=== PATIENT | female | born 2000 | race Caucasian/White ===

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

== ENCOUNTER 2020-06-29 14:00 | Inpatient (IN) | payer BC ==
[2020-07-07] MEDS: ELECTROLYTE-148 SOLN 1,000 ML IV SCH (13:00)
[2020-07-07 13:04] LABS: COCAINE, UR NEGATIVE ng/ml (CUTOFF=300); METHADONE, UR NEGATIVE ng/ml (CUTOFF=300); OPIATES, URI NEGATIVE ng/ml (CUTOFF=300); PHENCYCLIDINE,URINE NEGATIVE ng/ml (CUTOFF=25); URINE BENZODIAZEPINES NEGATIVE ng/ml (CUTOFF=200)
[2020-07-07 13:05] LABS: URINE AMPHETAMINES NEGATIVE ng/ml (CUTOFF=500); URINE BARBITURATES NEGATIVE ng/ml (CUTOFF=200)
[2020-07-07] MEDS ORDERED: CITRIC ACID/SODIUM CITRATE 30 ML UNIT-DOSE CUP PO ONE (13:40)
[2020-07-07] MEDS ORDERED: ELECTROLYTE-148 SOLN 1,000 ML IV SCH (13:45)
[2020-07-07] MEDS ORDERED: morphine SULFATE/PF 0.5 MG/ML (2cc Syringe - QUVA) ONE (14:16)
[2020-07-07] MEDS ORDERED: PHENYLEPHRINE HCL 10 MG/1 ML SINGLE DOSE VIAL ONE (14:16)
[2020-07-07] MEDS ORDERED: ceFAZolin SODIUM 1 GM VIAL ONE ×2 (15:08)
[2020-07-07] MEDS ORDERED: OXYTOCIN 10 UNITS/ML VIAL ONE ×4 (15:08→15:09)
[2020-07-07] MEDS ORDERED: BENZOCAINE 20% 57 GM BOTTLE TP PRN (15:15)
[2020-07-07] MEDS ORDERED: METHYLERGONOVINE MALEATE 0.2 MG/1 ML AMP IM PRN (15:15)
[2020-07-07] MEDS ORDERED: oxyCODONE HCL 5 MG TABLET PO PRN (15:15)
[2020-07-07] MEDS ORDERED: BENZOCAINE 28 GM HEMORRHOIDAL OINTMENT TP PRN (15:15)
[2020-07-07] MEDS ORDERED: WITCH HAZEL 50% (TUCKS) 40 PAD/JAR PAD TP PRN (15:15)
[2020-07-07] MEDS ORDERED: ONDANSETRON 4 MG/2 ML VIAL IVPUSH PRN (15:22)
[2020-07-07] MEDS: IBUPROFEN 800 MG/8 ML IJ IVPB PRN ×2 (15:30→22:31)
[2020-07-07] MEDS: OXYTOCIN 20 UNITS in 0.9% NS 20 UNIT/1,000 ML INFUS.BAG IV SCH (15:30)
[2020-07-07] MEDS ORDERED: IBUPROFEN 800 MG/8 ML IJ IVPB ONE (15:37)
[2020-07-08] MEDS: ACETAMINOPHEN 325 MG TABLET (FP) PO PRN ×4 (04:04→20:56)
[2020-07-08] MEDS: IBUPROFEN 600 MG TABLET (FP) PO PRN ×4 (04:05→20:57)
[2020-07-08] MEDS: SIMETHICONE 80 MG TAB.CHEW (FP) PO PRN ×4 (04:06→20:57)
[2020-07-08 08:29] LABS: BASO % 0.1 % (0-2.0); EOS % 0.4 % (0-4.5); HEMATOCRIT 30.7 % (32.4-45.2); LYMPH % 11.6 % (8-40); MCH 26.5 pg (25.7-33.7); MCHC 32.5 g/dl (32.0-36.0); MEAN CELL VOLUME 81.6 fl (80-96); MEAN PLT VOLUME 8.8 fl (7.5-11.1); MONO % 5.9 % (3.8-10.2); PLATELET COUNT 177 K/MM3 (134-434); RBC 3.76 M/mm3 (3.60-5.2); RDW 15.6 % (11.6-15.6); WHITE BLOOD COUNT 10.5 K/mm3 (4.0-10.0)
[2020-07-08] MEDS: PRENATAL VITAMINS W/ FOLIC ACID TABLET (FP) PO SCH (10:03)
[2020-07-08] MEDS ORDERED: BISACODYL 10 MG SUPP.RECT RC PRN (15:15)
[2020-07-08] MEDS: OXYTOCIN 20 UNITS in 0.9% NS 20 UNIT/1,000 ML INFUS.BAG IV SCH (16:44)
[2020-07-08] MEDS: ELECTROLYTE-148 SOLN 1,000 ML IV SCH (16:44)
[2020-07-08] MEDS: oxyCODONE HCL 5 MG TABLET PO PRN (21:27)
[2020-07-09] MEDS: ACETAMINOPHEN 325 MG TABLET (FP) PO PRN ×2 (05:54→12:25)
[2020-07-09] MEDS: SIMETHICONE 80 MG TAB.CHEW (FP) PO PRN ×2 (05:55→12:25)
[2020-07-09] MEDS: oxyCODONE HCL 5 MG TABLET PO PRN (05:55)
[2020-07-09] MEDS: PRENATAL VITAMINS W/ FOLIC ACID TABLET (FP) PO SCH (10:41)
[2020-07-09 12:22] VITALS: BP 126/73; PULSE 72; TEMP 98.3
[2020-07-09] MEDS: IBUPROFEN 600 MG TABLET (FP) PO PRN (12:24)
== END 2020-07-09 17:45 | disposition home or self-care (01) | DRG 787 ==
LOC: JLDR 07-07 11:57 → J3W 07-07 17:18
PROVIDERS: ADMIT Obstetrics & Gynecology; ATTEND Obstetrics & Gynecology
PROC: 10D00Z1 Extraction of Products of Conception, Low, Open Approach (ICD-10-PCS; principal; 2020-07-07)
DX: O34.211 Maternal care for low transverse scar from previous cesarean delivery (principal); O10.92 Unspecified pre-existing hypertension complicating childbirth; O99.03 Anemia complicating the puerperium; D64.89 Other specified anemias; Z86.69 Personal history of other diseases of the nervous system and sense organs; Z87.59 Personal history of other complications of pregnancy, childbirth and the puerperium; Z3A.39 39 weeks gestation of pregnancy; Z37.0 Single live birth; Z91.030 Bee allergy status
CPT/HCPCS: 36415; 80307; 85025; 88307-TC